=== PATIENT | male | born 1960 | race Caucasian/White ===

== ENCOUNTER 2021-10-25 12:04 | Emergency (ER) | payer OTHER ==
[~2021-10-25] VITALS: Ht 185.4 cm; Wt 102.1 kg
[2021-10-25 12:08] VITALS: BP 154/110
[2021-10-25] MEDS ORDERED: CYCLOBENZAPRINE5 MG PO (14:36)
[2021-10-25] MEDS ORDERED: IBU600 MG PO (14:36)
== END 2021-10-25 14:48 | disposition home or self-care (01) ==
LOC: ER 12:04
DX: S16.1XXA Strain of muscle, fascia and tendon at neck level, initial encounter (principal); S39.012A Strain of muscle, fascia and tendon of lower back, initial encounter; S89.92XA Unspecified injury of left lower leg, initial encounter; V49.00XA Driver injured in collision with unspecified motor vehicles in nontraffic accident, initial encounter; Y93.89 Activity, other specified; Y92.89 Other specified places as the place of occurrence of the external cause; Y99.8 Other external cause status